=== PATIENT | male | born 1970 | race Caucasian/White ===

== ENCOUNTER 2019-12-25 19:35 | Emergency (ER) | payer OTHER, SELFPAY ==
--- NOTE | ~2019-12-25 | XR_ITS ---
EXAMINATION: XR shoulder LT min 2V DATE: 12/25/2019 20:13 INDICATION: Left shoulder injury. TECHNIQUE: 4 views of left shoulder were obtained. COMPARISON: None. FINDINGS: There is inferior dislocation of the acromion with respect to distal clavicle. There is wid ening of the coracoclavicular interval, consistent with coracoclavicular ligament tear. No fracture. Glenohumeral joint is normal. IMPRESSION: 1. Type III acromioclavicular separation. Reviewed, dictated and finalized at location A.
--- NOTE | ~2019-12-25 | XR_ITS ---
EXAMINATION: XR clavicle LT DATE: 12/25/2019 20:13 INDICATION: Left shoulder injury. TECHNIQUE: 3 views of left clavicle were obtained. COMPARISON: None. FINDINGS: There is inferior dislocation of the acromion with respect to distal clavicle. There is wid ening of coracoclavicular interval, consistent with coracoclavicular ligament tear. No fracture. IMPRESSION: 1. Type III acromioclavicular separation. Reviewed, dictated and finalized at location A.
[2019-12-25 19:47] VITALS: BP 135/88; PULSE 100; RESP 15; TEMP 37.7; O2SAT 100
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
[2019-12-25] MEDS: MORPHINE SULFATE 4 MG/ML INJ IM (20:37)
[2019-12-25 22:01] VITALS: BP 130/62; PULSE 80; RESP 18; O2SAT 99
== END 2019-12-25 22:03 | disposition home or self-care (01) ==
PROVIDERS: Emergency Provider Emergency Medicine; PCP Internal Medicine Infectious Disease
DX: S43.142A Inferior dislocation of left acromioclavicular joint, initial encounter (principal); V18.0XXA Pedal cycle driver injured in noncollision transport accident in nontraffic accident, initial encounter; Y93.55 Activity, bike riding
CPT/HCPCS: 73000; 73030; 96372; 99283; A4565; J2270